=== PATIENT | male | born 1980 | race Two or more races ===

== ENCOUNTER 2021-02-11 07:51 | Emergency (ER) | payer OTHER, SELFPAY ==
[~2021-02-11] VITALS: Ht 177.8 cm; Wt 94.8 kg
--- NOTE | 2021-02-11 08:01 | NUR ---
PATIENT WALKED BACK FROM TRIAGE WITH CHIEF C/O ABD PAIN AND ANXIETY X6 MONTHS. PATIENT REPORTS "PEEING BLOOD YESTERDAY." PATIENT DENIES VOMITING AND DIARRHEA, REPORTS NAUSEA. [place] TIM, CALL LIGHT WITHIN REACH.
--- NOTE | 2021-02-11 08:08 | NUR ---
PATIENT REPORTS LAST DRINK "ABOUT 15 MINUTES AGO." PATIENT DRINKS 1 PINT OF WHISKEY AND 3 TALL CANS PER DAY.
[2021-02-11] MEDS ORDERED: THIAMINE 100MG TABLET ONE (08:12)
[2021-02-11] MEDS ORDERED: ONDANSETRON ODT 4 MG ONE (08:12)
[2021-02-11] MEDS ORDERED: FAMOTIDINE 20 MG TABLET ONE (08:12)
[2021-02-11] MEDS ORDERED: MAALOX/HYOSCYAMINE/LIDOCAINE 45 ML BTL ONE (08:12)
--- NOTE | 2021-02-11 08:16 | NUR ---
URINE SAMPLE COLLECTED AND SENT TO LAB, PATIENT MEDICATED PER [facility].
[2021-02-11 08:29] LABS: MICROSCOPIC AUTO
[2021-02-11 08:38] LABS: BASOPHILS % (AUTO) 1 % (0-1); EOSINOPHILS % (AUTO) 1 % (1-7); LYMPHOCYTES % (AUTO) 21 % (22-44); MEAN CORPUSCULAR HEMOGLOBIN 36.1 pg (27.5-34.5); MEAN CORPUSCULAR HGB CONC 34.7 g/dL (33.2-36.2); MEAN PLATELET VOLUME 8.5 fL (7.4-10.4); MONOCYTES % (AUTO) 10 % (2-9); NEUTROPHILS % (AUTO) 67 % (42-75); PLATELET COUNT 160 x10^3/uL (130-400); RED BLOOD COUNT 4.61 x10^6/uL (4.38-5.82); RED CELL DISTRIBUTION WIDTH 12.8 % (9.4-14.8)
[2021-02-11 08:42] LABS: MD NO
[2021-02-11 08:48] LABS: ALANINE AMINOTRANSFERASE 301 U/L (12-78); ALBUMIN 4.1 g/dL (3.4-5.0); ANION GAP 8 mmol/L (5-15); CALCIUM 8.9 mg/dL (8.5-10.1); CHLORIDE 103 mmol/L (98-107); CREATININE 0.98 mg/dL (0.7-1.3)
[2021-02-11 08:50] LABS: ALKALINE PHOSPHATASE 125 U/L (45-117); BILIRUBIN,TOTAL 0.6 mg/dL (0.2-1.0); TOTAL PROTEIN 9.1 g/dL (6.4-8.2)
[2021-02-11] MEDS ORDERED: ONDANSETRON ODT 4 MG PO ONE (09:00)
[2021-02-11] MEDS ORDERED: FAMOTIDINE 20 MG TABLET PO ONE (09:00)
[2021-02-11] MEDS ORDERED: MAALOX/HYOSCYAMINE/LIDOCAINE 45 ML BTL PO ONE (09:00)
[2021-02-11] MEDS ORDERED: THIAMINE 100MG TABLET PO ONE (09:00)
[2021-02-11 09:28] VITALS: BP 147/97
--- NOTE | 2021-02-11 09:56 | NUR ---
Patient given discharge instructions and prescription and they have confirmed that they understand the instructions. Educated patient about alcohol cessation. Patient stable and ambulatory with steady gait from ED to private vehicle.
== END 2021-02-11 09:57 | disposition home or self-care (01) ==
LOC: ED 08:34
DX: K29.20 Alcoholic gastritis without bleeding (principal); F10.129 Alcohol abuse with intoxication, unspecified; R10.13 Epigastric pain; R11.0 Nausea; Y90.0 Blood alcohol level of less than 20 mg/100 ml
CPT/HCPCS: 36415; 80053; 81001; 83690; 85025; 93005; 99284; Q0162